=== PATIENT | female | born 1965 | race Caucasian/White ===

== ENCOUNTER → 2018-09-04 | Outpatient (CLI) | payer OTHER | LOC: FIMAGING 07:02 | PROVIDERS: ATTEND Physician Assistant | DX: Z09 Encounter for follow-up examination after completed treatment for conditions other than malignant neoplasm (principal); R93.1 Abnormal findings on diagnostic imaging of heart and coronary circulation ==

== ENCOUNTER 2018-10-17 13:12 | Emergency (ER) | payer OTHER ==
--- NOTE | 2018-10-17 14:29 | EDPHY ---
H & P Stated Complaint: chest pain radiating up neck Source: Patient - Personal History LMP (Females 10-55): Irregular Current Tetanus/Diphtheria Vaccine: Yes Current Tetanus Diphtheria and Acellular Pertussis (TDAP): Yes - Medical/Surgical History Hx Asthma: Yes Hx Chronic Respiratory Disease: No Hx Diabetes: No Hx Cardiac Disease: Yes Hx Renal Disease: No Hx Cirrhosis: No Hx Alcoholism: No Hx HIV/AIDS: No Hx Splenectomy or Spleen Trauma: No Other PMH: PMH- "ENLARGED AORTA", ASTHMA. Ortho - Social History Smoking Status: Former smoker Alcohol Use: Sober Drug Use: None Time Seen by Provider: 10/17/18 13:54 HPI/ROS: CHIEF COMPLAINT: Chest pain HISTORY OF PRESENT ILLNESS: 53-year-old female with known thoracic aortic aneurysm presents with chest pain. 3 day history of substernal chest discomfort. The pain is constant, moderate and radiates to the back. The pain increases with coughing. History of ascending thoracic aortic aneurysm, monitoring with serial CT scans. Last CT scan was in 2016. No change with exertion. No other alleviating or aggravating factors. No associated symptoms. REVIEW OF SYSTEMS: complete 10 point ROS reviewed and is negative except for the noted elements in the HPI (Sandi Bowden S) - Physical Exam Exam: General Appearance: Alert, pleasant Eyes: Pupils equal and round, no conjunctival pallor ENT, Mouth: Mucous membranes moist Neck: Normal inspection Respiratory: Lungs are clear to auscultation Cardiovascular: Regular rate and rhythm, no murmur Gastrointestinal: Abdomen is soft and nontender Neurological: A&O, nonfocal exam Skin: Warm and dry, no rash on chest wall Extremities: Nontender, no pedal edema Psychiatric: Mood and affect normal (Sandi Bowden S) Constitutional: Initial Vital Signs Temperature (C) 36.5 C 10/17/18 13:14 Heart Rate 78 10/17/18 13:14 Respiratory Rate 18 10/17/18 13:14 Blood Pressure 147/87 H 10/17/18 13:14 O2 Sat (%) 98 10/17/18 13:14 O2 Delivery Mode Room Air Allergies/Adverse Reactions: Penicillins Allergy (Verified 12/19/13 20:35) Home Medications: Medication Instructions Recorded Cefdinir 06/28/16 predniSONE 20 mg PO DAILY 4 Days tab 06/28/16 Zoloft 50mg (*) 10/17/18 Medical Decision Making - Diagnostics EKG Interpretation: terpreted by me reveals normal sinus rhythm, rate 66, right bundle branch block. Interpretation: Abnormal EKG (Sandi Bowden) ED Course/Re-evaluation: This patient presents with chest pain radiating to the back. stat EKG reveals NSR, RBBB, no evidence of ischemia or dysrhythmia. I do not suspect ACS, given prolonged discomfort. Has a known thoracic aneurysm. Old medical record reviewed. CT angio of the chest in July 2015 revealed a 4.3 cm aneurysm of the ascending aorta. Slightly increased from 4.1cm on a CT scan in 2013. Concern for aortic aneurysm causing symptoms. Discussed with the patient, she agrees and this is the reason for her visit today. CT angiogram of the chest ordered. Signed over to Dr. Hart at shift change. If CT reveals no change in thoracic aneurysm, I feel that she is safe and stable for discharge home. f/ u cardiology. (Sandi Bowden) Differential Diagnosis: Differential diagnosis includes though it is not limited to pneumonia, pneumothorax, pulmonary embolism, aortic dissection, pericarditis, acute coronary syndrome. (Sandi Bowden) Other Provider: I assumed care of the patient at 3pm from Dr. Bowden. The patient underwent a CT angiogram of the chest which demonstrated no evidence of a PE or dissection. I re-evaluated the patient personally at 3:40 p.m. And informed her of the results of the CT scan. Patient will be instructed to begin anti-inflammatories for presumed musculoskeletal pain. She will be discharged home per Dr. Bowden's instructions to me if the CT scan was negative. (Ike Hart) - Data Points Laboratory Results: Laboratory Results 10/17/18 14:05 10/17/18 14:05 Point of Care Test Results: Chemistry 10/17/18 14:08 POC Troponin I 0.00 ng/mL ng/mL (0.00-0.08) Departure - Departure Disposition: Home, Routine, Self-Care Clinical Impression: Chest pain Qualifiers: Chest pain type: precordial pain Qualified Code(s): R07.2 - Precordial pain Condition: Good Instructions: Chest Pain (ED) Additional Instructions: 1. Take Ibuprofen or Motrin 600 mg by mouth three times a day. 2. Please return to the ED for markedly worsening symptoms or other concerns. 3. Your CT scan demonstrates no progression of your aortic aneurysm, no evidence of a blood clot or other concerning findings. 4. Please schedule a follow-up appointment with your primary care provider for any mild ongoing symptoms. Referrals: Quyen Nixon PA [Primary Care Provider] - As per Instructions
--- NOTE | 2018-10-17 14:36 | CPEKG ---
Test Reason : OPEN Blood Pressure : / mmHG Vent. Rate : 066 BPM Atrial Rate : 066 BPM P-R Int : 157 ms QRS Dur : 134 ms QT Int : 427 ms P-R-T Axes : 032 -17 -10 degrees QTc Int : 448 ms Sinus rhythm Right bundle branch block Confirmed by Sandi Bowden ([id number]) on 10/17/2018 2:36:16 PM Referred By: PHYSICIAN ED Confirmed By:Sandi Bowden
[2018-10-17] MEDS ORDERED: IOPAMIDOL (ISOVUE 370) 100 ML BTL IV ONE (14:58)
[2018-10-17 15:22] LABS: PLATELET COUNT 347 10^3/uL (150-400)
[2018-10-17 15:23] VITALS: BP 108/83
== END 2018-10-17 16:01 | disposition home or self-care (01) ==
DX: R07.2 Precordial pain (principal); I71.2 Thoracic aortic aneurysm, without rupture; Z88.0 Allergy status to penicillin
CPT/HCPCS: 84484-ER; Q9967